=== PATIENT | female | born 1980 | race African-American/Black ===

== ENCOUNTER 2017-02-09 09:50 | Inpatient (IN) | payer BC ==
[2017-02-09] VITALS (17 sets, daily range): BP systolic 132–176; BP diastolic 72–104; PULSE 74–116; TEMP 97.3–98.8
[~2017-02-09] VITALS: Ht 149.9 cm; Wt 81.4 kg
[2017-02-09] MEDS ORDERED: PRENATAL1 TA7 PO (12:12)
[2017-02-09] MEDS ORDERED: SLOW FE142 MG PO (12:13)
[2017-02-09 13:40] LABS: BASO % 0.4 % (0.0-2.0); EOS # 0.1 (0.0-0.7); EOS % 0.6 % (0-4.0); GRAN # 9.2 (1.4-6.5); GRAN % 85.1 % (42.2-75.2); LYMPH # 0.8 (1.2-3.4); LYMPH % 7.8 % (20.0-51.0); MEAN CELL VOLUME 82 fl (80.0-100.0); MEAN CORPUSCULAR HGB CONC 32 g/dl (33.0-37.0); MEAN PLATELET VOLUME 11.8 fl (7.4-10.4); MONO # 0.6 (0.1-0.6); MONO % 5.4 % (1.7-9.3); PLATELET COUNT 198 K/mm3 (130-400); RED BLOOD COUNT 4.38 M/mm3 (4.10-5.30); WHITE BLOOD COUNT 10.8 K/mm3 (4.8-10.8)
[2017-02-09 13:41] LABS: HEMATOCRIT 36.1 % (37.0-47.0); HEMOGLOBIN 11.4 g/dl (12.5-16.0); MEAN CORPUSCULAR HEMOGLOBIN 26 pg (27.0-31.0)
[2017-02-09 15:13] LABS: ADJUSTED CALCIUM 10.2 mg/dL (8.4-10.2); ALBUMIN 3.2 gm/dL (3.5-5.0); BILIRUBIN,TOTAL 0.7 mg/dL (0.0-1.0); CALCIUM 9.6 mg/dL (8.4-10.2); CREATININE, serum 0.52 mg/dL (0.52-1.25); POTASSIUM 3.8 mmol/L (3.4-5.0); TOTAL PROTEIN 6.3 gm/dL (6.4-8.2)
[2017-02-10 03:10] VITALS: BP 128/75; PULSE 104; TEMP 98.8
[2017-02-10 08:00] VITALS: BP 118/72; PULSE 80
[2017-02-10] MEDS ORDERED: IBU600 MG PO (08:22)
[2017-02-10] MEDS ORDERED: ZOLOFT 50MG50 MG PO (08:24)
== END 2017-02-10 16:20 | disposition home health service (06) | DRG 775 ==
LOC: LDRO 09:50 → OB 09:51 → LDR 09:51 → OB 16:00
PROVIDERS: Obstetrics & Gynecology
PROC: 10E0XZZ Delivery of Products of Conception, External Approach (ICD-10-PCS; principal; 2017-02-09)
DX: O69.81X0 Labor and delivery complicated by cord around neck, without compression, not applicable or unspecified (principal); D56.1 Beta thalassemia; O99.02 Anemia complicating childbirth; Z3A.37 37 weeks gestation of pregnancy; Z37.0 Single live birth
CPT/HCPCS: J0360; J2590; J7120